=== PATIENT | male | born 1975 | race Two or more races ===

== ENCOUNTER → 2024-09-22 | Outpatient (CLI) | payer MEDICAID ==
[~2024-09-22] VITALS: Ht 170.2 cm; Wt 86.2 kg
[~2024-09-22] MED LIST: AML5T PO; ATOR-507 PO; CLON0.1T TD; DULA0.5I SC; EMPA1TAB3 PO; HYDR12.59 PO; LOSA-534 PO; METF-370 PO; PIO30T PO
[2024-09-22 14:45] LABS: Hematocrit 41.0 % (41.0-53.0); Hemoglobin 13.6 g/dL (13.5-17.5); Mean Corpuscular Hemoglobin 28.2 pg (28.0-32.0); Mean Corpuscular Volume 85.4 fL (80.0-100.0); Nucleated Red Blood Cells % 0.0 %
[2024-09-22 14:54] LABS: Urine Protein, UAD Negative (Negative)
[2024-09-22 15:02] LABS: Albumin 4.5 g/dL (3.2-4.8); Alkaline Phosphatase 83 U/L (46-116); Anion Gap 9 (5-15); BUN/Creatinine Ratio 26.3 (10.0-20.0); Blood Urea Nitrogen 21 mg/dL (9-23); Calcium 9.8 mg/dL (8.7-10.4); Carbon Dioxide 27 mmol/L (20-31); Chloride 105 mmol/L (98-107); Glucose 84 mg/dL (74-106); Potassium 4.1 mmol/L (3.5-5.1); Sodium 141 mmol/L (136-145); Total Protein 7.1 g/dL (5.7-8.2)
[2024-09-22 15:03] LABS: Alanine Aminotransferase 54 U/L (7-40); Bilirubin, Total 0.7 mg/dL (0.2-1.0)
[2024-09-22 15:12] LABS: INR 1.01 (0.9-1.15); Partial Thromboplastin Time 30.2 SEC (24.5-34.5); Prothrombin Time 10.7 sec (9.3-11.8)
[2024-09-27 05:06] LABS: Albumin 3.9 g/dL (2.9-4.4); Alpha-1-Globulin 0.2 g/dL (0.0-0.4); Alpha-2-Globulin 0.6 g/dL (0.4-1.0); Gamma Globulin 1.1 g/dL (0.4-1.8)
== END | disposition home or self-care (01) ==
LOC: LAB 13:53 → EDSTATUS 09-28 07:00
PROVIDERS: ATTEND Urology
DX: N47.1 Phimosis (principal); Z53.8 Procedure and treatment not carried out for other reasons
CPT/HCPCS: 36415; 80053; 81001; 83036; 84155; 84165; 85025; 85610; 85730; 87086